=== PATIENT | female | born 1985 | race Caucasian/White ===

== ENCOUNTER 2017-09-21 12:59 | Emergency (ER) | payer MEDICAID ==
[2017-09-21 13:12] VITALS: RESP 16; TEMP 98.1
[2017-09-21] MEDS ORDERED: ONDANSETRON DISINTEGRATING 4 MG TAB PO ONE (13:21)
--- NOTE | 2017-09-21 14:13 | EDPHY ---
H & P Stated Complaint: Pt. states nausea,sob,dizzy,chills and body aches since yesterday Time Seen by Provider: 09/21/17 13:04 HPI/ROS: Chief Complaint: Nausea vomiting HPI: 32-year-old woman presenting with nausea vomiting this morning. Second having some ways of hot flushing associated with nausea vomiting. Describing bilious appearing yellow fluid. No coffee grounds or blood. No diarrhea. Slight constipation. No abdominal pain. No urinary urgency or frequency. Does have a history urinary tract infections in the past. Last menstrual period is unknown. She had an IUD removed 2 weeks ago and now has a Norplant. She has not been able to keep any fluids down. She does states yesterday afternoon while driving home from work she did feel little nauseated. No new foods. She has not been drinking or using any other substances. No known ill contacts. ROS: 10 point Review of Systems is negative except as noted in the HPI. PMH: None Social History: No smoking, occasional alcohol, no recreational drug use Family History: non-contributory Physical Exam: Gen: Awake, Alert, No Distress HEENT: Nose: no rhinorrhea Eyes: PERRLA, EOMI Mouth: Moist mucosa Neck: Supple, no JVD Chest: nontender, lungs clear to auscultation Heart: S1, S2 normal, no murmur Abd: Soft, non-tender, no guarding Back: no CVA tenderness, no midline tenderness Ext: no edema, non-tender Skin: no rash Neuro: CN II-XII intact, Sensation grossly intact, Strength 5/5 in bilateral upper and lower extremities - Personal History LMP (Females 10-55): Extended Cycle BCP/Inj - Medical/Surgical History Hx Asthma: No Hx Chronic Respiratory Disease: No Hx Diabetes: No Hx Cardiac Disease: No Hx Renal Disease: No Hx Cirrhosis: No Hx Alcoholism: No Hx HIV/AIDS: No Hx Splenectomy or Spleen Trauma: No Other PMH: Med hx-none. [id number] - Social History Smoking Status: Never smoked Constitutional: Initial Vital Signs Temperature (C) 36.7 C 09/21/17 13:06 Heart Rate 62 09/21/17 13:06 Respiratory Rate 16 09/21/17 13:06 Blood Pressure 120/76 09/21/17 13:06 O2 Sat (%) 97 09/21/17 13:06 O2 Delivery Mode Room Air Allergies/Adverse Reactions: No Known Allergies Allergy (Verified 09/21/17 13:05) Home Medications: Medication Instructions Recorded Etonogestrel [Nexplanon] 09/21/17 Medical Decision Making - Data Points Laboratory Results: 09/21/17 09/21/17 13:25 13:25 Urine Color YELLOW Urine Appearance CLEAR Urine pH 6.0 (5.0-7.5) Ur Specific [place] 1.020 (1.002-1.030) Urine Protein NEGATIVE (NEGATIVE) Urine Ketones NEGATIVE (NEGATIVE) Urine Blood NEGATIVE (NEGATIVE) Urine Nitrate NEGATIVE (NEGATIVE) Urine Bilirubin NEGATIVE (NEGATIVE) Urine Urobilinogen 0.2 EU EU (0.2-1.0) Ur Leukocyte Esterase NEGATIVE (NEGATIVE) Urine Glucose NEGATIVE (NEGATIVE) Urine Test NEGATIVE Medications Given: Discontinued Medications Ondansetron HCl (Zofran Odt) 4 mg PO EDNOW ONE Stop: 09/21/17 13:22 Last Admin: 09/21/17 13:23 Dose: 4 mg Departure - Departure Disposition: Home, Routine, Self-Care Clinical Impression: Nausea & vomiting Condition: Good Instructions: Acute Nausea and Vomiting (ED), Ondansetron (By mouth) Additional Instructions: Follow up with primary care physician in 2-3 days if symptoms have not resolved. Return to the emergency department for increasing abdominal pain, uncontrolled nausea vomiting, fevers, chills, or any other concerns. Referrals: Yenifer Mendez MD [[facility] [place]] - As per Instructions
[2017-09-21] MEDS ORDERED: ONDANSETRON 4MG PREPACK#2 BTL TAKEHOME ONE (14:14)
[2017-09-21 14:58] VITALS: BP 127/70; PULSE 75; O2SAT 94
== END 2017-09-21 14:50 | disposition home or self-care (01) ==
LOC: CED 12:59
DX: R11.2 Nausea with vomiting, unspecified (principal)
CPT/HCPCS: 81003-PO; 81025-PO

== ENCOUNTER 2017-11-28 16:50 | Emergency (ER) | payer MEDICAID ==
[2017-11-28 17:00] VITALS: BP 140/80; PULSE 67; RESP 18; TEMP 98.8; O2SAT 96
--- NOTE | 2017-11-28 17:32 | EDPHY ---
H & P Time Seen by Provider: 11/28/17 17:20 HPI/ROS: CHIEF COMPLAINT: Irritation both eyes HISTORY OF PRESENT ILLNESS: Onset yesterday of irritation to both eyes. Worse today whereby eyelids were stuck shut. Also noted that she was having drainage which required tissue as it would roll out of the eyelids Contact Lenses none Eye drops none Eye surgery none No specific known exposure. She does have 4 children the youngest being 5. However they are all fine. No antecedent URI such as scratchy throat irritation to the ears or nose . ROS: Constitutional - no fevers or chills Eyes - no diplopia, blurred vision. ENT - no earache, change in hearing, difficulty swallowing, sore throat Smoking Status: Never smoked Physical Exam: General Appearance: Alert, no distress. Afebrile. Normal phonation. No respiratory distress. Not photosensitive Eyes: Pupils equal and round no pallor or injection. No icterus. Lids without changes. No ptosis. [Mild] erythema of bulbar and eyelid conjunctival surface without flare or limbal predominance. No spasm or pain with light. No preauricular nodes. Slit Lamp: Deep, clear quiet anterior chamber without cells or flare. No hyphema or hypopion or ulcer Flourescein: Mild bilateral stippled, tiny dots of uptake diffusely, without any meniscus, on both eyes left greater than right ENT, Mouth: Mucous membranes moist. Pharynx without erythema or exudate. TM Clear. Sinuses nontender. Neck: No adenopathy. Supple. Skin: Warm and dry, no rashes. Psych: Calm. Constitutional: Initial Vital Signs Temperature (C) 37.1 C 11/28/17 16:58 Heart Rate 67 11/28/17 16:58 Respiratory Rate 18 11/28/17 16:58 Blood Pressure 140/80 H 11/28/17 16:58 O2 Sat (%) 96 11/28/17 16:58 Allergies/Adverse Reactions: No Known Allergies Allergy (Verified 11/28/17 17:00) Home Medications: Medication Instructions Recorded Etonogestrel [Nexplanon] 09/21/17 Sulfacetamide 10% [Bleph-10 10%] 1 drops EACHEYE Q4H 5 Days 11/28/17 opht.btl Medical Decision Making ED Course/Re-evaluation: I will go ahead and put her on some sulfacetamide eyedrops at this time and suspect that were dealing with adenovirus carotid conjunctivitis with expectant improvement we verified by Ophthalmology in follow-up Diagnostic considerations include, but are not limited to, the following: Corneal laceration, corneal abrasion, Corneal FB, conjunctival foreign body, allergic conjunctivitis, bacterial conjunctivitis, viral conjunctivitis, chemical conjunctivitis [glaucoma] Departure - Departure Disposition: Home, Routine, Self-Care Clinical Impression: Keratoconjunctivitis Qualifiers: Laterality: bilateral Qualified Code(s): H16.203 - Unspecified keratoconjunctivitis, bilateral Condition: Good Instructions: Conjunctivitis (ED) Additional Instructions: Warm compresses if your eyelids are glued shut No makeup New makeup when you are all better Call Ophthalmology to be seen later this week Sulfacetamide antibiotic drops Referrals: NONE *PRIMARY CARE P,. [Primary Care Provider] - As per Instructions Vinay Segura MD [Medical Doctor] - 2-3 days, call for appt. Prescriptions: Sulfacetamide 10% [Bleph-10 10%] 1 drops EACHEYE Q4H 5 Days opht.btl
== END 2017-11-28 17:46 | disposition home or self-care (01) ==
LOC: CED 16:50
DX: H16.203 Unspecified keratoconjunctivitis, bilateral (principal)